=== PATIENT | female | born 1995 | race Hispanic/Latino ===

== ENCOUNTER 2023-03-22 23:41 | Emergency (ER) | payer SELFPAY ==
[~2023-03-22] VITALS: Ht 157.5 cm; Wt 64.5 kg
[2023-03-22 23:45] VITALS: O2SAT 100
[2023-03-22] MEDS ORDERED: ONDANSETRON HCL 4 MG ORAL DISINTEGRATING TAB ONE (23:53)
[2023-03-23] MEDS ORDERED: ONDANSETRON ODT4 MG PO
[2023-03-23] MEDS ORDERED: ONDANSETRON HCL 4 MG ORAL DISINTEGRATING TAB PO ONE
[2023-03-23] MEDS ORDERED: DICYCLOMINE HCL20 MG PO
== END 2023-03-23 00:46 | disposition home or self-care (01) ==
LOC: ER 23:45
DX: R11.2 Nausea with vomiting, unspecified (principal); R19.7 Diarrhea, unspecified; K21.9 Gastro-esophageal reflux disease without esophagitis; L30.9 Dermatitis, unspecified
CPT/HCPCS: 99283; Q0162